=== PATIENT | female | born 1980 | race Caucasian/White ===

== ENCOUNTER 2019-03-29 15:48 | Emergency (ER) | payer SELFPAY ==
[~2019-03-29] VITALS: Ht 152.4 cm; Wt 59.1 kg
[2019-03-29 16:17] VITALS: BP 118/85; Ht 152.4 cm; Wt 59.1 kg
[2019-03-29] MEDS ORDERED: TORADOL10 MG PO (18:27)
== END 2019-03-29 19:05 | disposition home or self-care (01) ==
LOC: D.ER 15:48
DX: M25.571 Pain in right ankle and joints of right foot (principal)